=== PATIENT | male | born 1965 | race Caucasian/White ===

== ENCOUNTER 2019-10-23 15:19 | Emergency (ER) | payer SELFPAY ==
[2019-10-23] MEDS ORDERED: NORMAL SALINE 1000 ML 1,000 ML IV ONE (15:39)
[2019-10-23] MEDS ORDERED: ONDANSETRON HCL INJ/PF 4 MG/2 ML SDV IV ONE (15:39)
--- NOTE | 2019-10-23 15:41 | ER Document Report ---
ED Medical Screen (RME) - General Chief Complaint: Dizziness Stated Complaint: DIZZY,WEAK Time Seen by Provider: 10/23/19 15:35 Mode of Arrival: Ambulatory Information source: Patient Notes: 53-year-old male patient with history of diabetes, hypertension and hyperlipidemia presenting to the emergency department from the [facility] with request for medical clearance. Patient went there today, [place], [facility] states that his alcohol level was too high and that he was very shaky had an unsteady gait and reported that he had not been eating or drinking much in the last week. [facility] is holding a bed for him. Patient is alert, oriented, and answering all questions appropriately, he is tearful in triage. Denies any chest pain or shortness of breath. I have greeted and performed a rapid initial assessment of this patient. A comprehensive ED assessment and evaluation of the patient, analysis of test results and completion of the medical decision making process will be conducted by additional ED providers. I have specifically instructed the patient or family members with the patient to immediately return to any nursing staff should anything change in the patient's condition or with their chief complaint. - Related Data Allergies/Adverse Reactions: No Known Allergies Allergy (Verified 10/23/19 15:34) Physical Exam - Vital signs Vitals: Temp Pulse Resp BP Pulse Ox 98.2 F 105 H 16 165/94 H 100 10/23/19 15:31 10/23/19 15:31 10/23/19 15:31 10/23/19 15:31 10/23/19 15:31 Course - Vital Signs Vital signs: Temp Pulse Resp BP Pulse Ox 98.2 F 105 H 16 165/94 H 100 10/23/19 15:31 10/23/19 15:31 10/23/19 15:31 10/23/19 15:31 10/23/19 15:31
[2019-10-23 16:44] LABS: HEMATOCRIT 39.7 % (37.9-51.0); HEMOGLOBIN 13.9 g/dL (13.5-17.0); MEAN CORPUSCULAR HEMOGLOBIN 36.3 pg (27.0-33.4); MEAN CORPUSCULAR HGB CONC 35.1 g/dL (32.0-36.0); MEAN CORPUSCULAR VOLUME 103 fl (80-97); RED BLOOD COUNT 3.84 10^6/uL (4.35-5.55); RED CELL DISTRIBUTION WIDTH 15.6 % (11.5-14.0); WHITE BLOOD COUNT 3.2 10^3/uL (4.0-10.5)
[2019-10-23 16:45] LABS: PLATELET COUNT 72 10^3/uL (150-450)
[2019-10-23 16:55] LABS: ALBUMIN 4.3 g/dL (3.5-5.0); ALKALINE PHOSPHATASE 314 U/L (38-126); ANION GAP 19 (5-19); ASPARTATE AMINO TRANSFERASE 371 U/L (17-59); BILIRUBIN,DIRECT 0.8 mg/dL (0.0-0.4); BILIRUBIN,TOTAL 1.3 mg/dL (0.2-1.3); BLOOD UREA NITROGEN 8 mg/dL (7-20); CARBON DIOXIDE 24 mmol/L (22-30); CHLORIDE 89 mmol/L (98-107); GLUCOSE 102 mg/dL (75-110); POTASSIUM 4.5 mmol/L (3.6-5.0); TOTAL PROTEIN 7.3 g/dL (6.3-8.2)
[2019-10-23 17:06] LABS: ABSOLUTE MONOCYTES # (MANUAL) 0.1 10^3/uL (0.1-1.4); ANISOCYTOSIS 1+; BAND NEUTROPHILS % (MANUAL) 1 % (3-5); BASOPHILS % (MANUAL) 0 % (0-2); EOSINOPHILS % (MANUAL) 0 % (0-6); LYMPHOCYTES % (MANUAL) 31 % (13-45); MONOCYTES % (MANUAL) 3 % (3-13); SEGMENTED NEUTROPHILS % (MAN) 65 % (42-78); TOTAL CELLS COUNTED 100
[2019-10-23 17:07] LABS: PLATELET COMMENT DECREASED
[2019-10-23] MEDS ORDERED: ONDANSETRON HCL INJ/PF 4 MG/2 ML SDV ONE (17:54)
[2019-10-23] MEDS ORDERED: NORMAL SALINE 1000 ML 1,000 ML with POTASSIUM CHLORIDE 20 MEQ, MAGNESIUM SULFATE 8 MEQ,... IV SCH ×10 (18:00→22:00)
[2019-10-23 19:53] LABS: APPEARANCE,URINE CLEAR; BILIRUBIN,URINE NEGATIVE (NEGATIVE); COLOR,URINE YELLOW; GLUCOSE, URINE 50 mg/dL (NEGATIVE); KETONES,URINE 20 mg/dL (NEGATIVE); LEUKOCYTE ESTERASE,URINE NEGATIVE (NEGATIVE); NITRITE,URINE NEGATIVE (NEGATIVE); PROTEIN,URINE 100 mg/dL (NEGATIVE); UROBILINOGEN,URINE NEGATIVE mg/dL (<2.0)
--- NOTE | 2019-10-23 20:13 | ER Document Report ---
ED Substance Abuse / Acc. OD - General Chief Complaint: ETOH Abuse Stated Complaint: DIZZY,WEAK Time Seen by Provider: 10/23/19 15:35 Mode of Arrival: Ambulatory Information source: Patient Notes: Patient reports that he is an alcoholic for the last 10 years. States though he has been drinking more in the last 5years and states he drinks 12 pack a day at night. 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 Patient had presented himself to a mental health facility and because of his acute alcohol intoxication he was sent to the emergency room for further evaluation to gain medical clearance before entering a mental health rehab program. Any chest pain seizure activity nausea vomiting diarrhea. Patient does have a history of diabetes insulin- dependent. So hypertension. TRAVEL OUTSIDE OF THE [place] IN LAST 30 DAYS: No - HPI Patient complains to provider of: Alcohol abuse Onset: Other - Patient drink alcohol this morning Onset/Duration: Gradual Quality of pain: Other - Denies any pain Severity: Mild Pain Level: 0 Situational problems related to: Lost job, Other - Lost job in August Overdose of: Other - Patient states he only drank 1 beer this morning. However he reports he drinks a 12 pack last night. Patient reports he commonly drinks a 12 pack of beer every night. Associated Symptoms: None Recently seen / treated by doctor: No - Related Data Allergies/Adverse Reactions: No Known Allergies Allergy (Verified 10/23/19 15:34) Home Medications: DM. HTN. 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 Lives with: Alone Family History: Reviewed & Not Pertinent Patient has suicidal ideation: No Patient has homicidal ideation: No - Past Medical History Cardiac Medical History: Reports: Hx Hypertension Pulmonary Medical History: Reports: None EENT Medical History: Reports: None Neurological Medical History: Reports: Hx Cerebrovascular Accident Endocrine Medical History: Reports: Hx Diabetes Mellitus Type 2 Malignancy Medical History: Reports None GI Medical History: Reports: None Musculoskeletal Medical History: Reports Hx Arthritis Skin Medical History: Reports None Review of Systems - Review of Systems Constitutional: No symptoms reported EENT: No symptoms reported Cardiovascular: No symptoms reported Respiratory: No symptoms reported Gastrointestinal: No symptoms reported Genitourinary: No symptoms reported Male Genitourinary: No symptoms reported Musculoskeletal: No symptoms reported Skin: No symptoms reported Hematologic/Lymphatic: No symptoms reported Neurological/Psychological: No symptoms reported Physical Exam - Vital signs Vitals: Temp Pulse Resp BP Pulse Ox 98.2 F 105 H 16 165/94 H 100 10/23/19 15:31 10/23/19 15:31 10/23/19 15:31 10/23/19 15:31 10/23/19 15:31 Interpretation: Normal - General General appearance: Appears well, Alert - HEENT Head: Normocephalic, Atraumatic Eyes: Normal Pupils: PERRL - Respiratory Respiratory status: No respiratory distress Chest status: Nontender Breath sounds: Normal Chest palpation: Normal - Cardiovascular Rhythm: Regular, Tachycardia Heart sounds: Normal auscultation Murmur: No - Abdominal Inspection: Normal Distension: No distension Bowel sounds: Normal Tenderness: Nontender Organomegaly: No organomegaly, Hepatomegaly - Back Back: Normal, Nontender - Extremities General upper extremity: Normal inspection, Nontender, Normal color, Normal ROM, Normal temperature General lower extremity: Normal inspection, Nontender, Normal color, Normal ROM, Normal temperature, Normal weight bearing. No: Zeb's sign - Neurological Neuro grossly intact: Yes Cognition: Normal Orientation: AAOx4 Loren Coma Scale Eye Opening: Spontaneous Loren Coma Scale Verbal: Oriented [place] Coma Scale Motor: Obeys Commands [place] Coma Scale Total: 15 Speech: Normal Motor strength normal: LUE, RUE, LLE, RLE Sensory: Normal - Psychological Associated symptoms: Normal affect, Normal mood - Skin Skin Temperature: Warm Skin Moisture: Dry Skin Color: Normal Course - Re-evaluation Re-evalutation: 10/24/19 03:50 Patient is resting comfortably not showing any signs of delirium tremens at this time. Patient does have been ordered to receive lorazepam every 6 hours as needed agitation. Patient is medically cleared. A repeat urinalysis has been ordered as I believe the urinalysis report of blood may be related to the fact that the dipstick was had concentrated urine. 10/24/19 07:12 Repeat urinalysis on patient shows that there is microscopic hematuria still present. No evidence for infection no white cells present. 10/24/19 07:13 Patient has eaten 2 meals well here since overnight without any nausea vomiting. Patient no longer has a tremor and is resting comfortably in the room. Patient is medically cleared to be treated in the inpatient detox center. - Vital Signs Vital signs: Temp Pulse Resp BP Pulse Ox 98.7 F 92 20 147/87 H 97 10/24/19 05:30 10/24/19 05:30 10/24/19 05:30 10/24/19 05:30 10/24/19 05:30 - Laboratory Result Diagrams: 10/23/19 16:16 10/23/19 16:16 Laboratory results interpreted by me: 10/23/19 10/23/19 10/23/19 16:16 16:16 16:16 WBC 3.2 L RBC 3.84 L MCV 103 H MCH 36.3 H RDW 15.6 H Plt Count 72 L Band Neutrophils % 1 L Sodium 131.5 L Chloride 89 L Direct Bilirubin 0.8 H AST 371 H Alkaline Phosphatase 314 H Urine Protein Urine Glucose (UA) Urine Ketones Urine Blood Acetaminophen < 10 L 10/23/19 10/24/19 19:28 06:17 WBC RBC MCV MCH RDW Plt Count Band Neutrophils % Sodium Chloride Direct Bilirubin AST Alkaline Phosphatase Urine Protein 100 H Urine Glucose (UA) 50 H >=500 H Urine Ketones 20 H 20 H Urine Blood MODERATE H MODERATE H Acetaminophen Discharge - Discharge Clinical Impression: Alcohol abuse, Hematuria, microscopic Acute alcohol intoxication Qualifiers: Complication of substance-induced condition: uncomplicated Qualified Code(s): F10.920 - Alcohol use, unspecified with intoxication, uncomplicated Diabetes mellitus Qualifiers: Diabetes mellitus type: type 2 Diabetes mellitus skilled nursing insulin use: with termite inspector use Diabetes mellitus complication status: without complication Robert lified Code(s): E11.9 - Type 2 diabetes mellitus without complications; Z79.4 - rodent exterminator (current) use of insulin Condition: Stable Disposition: REHAB FACILITY Additional Instructions: WithHematuria Hematuria, or blood in your urine, can be caused by minor medical problems, such as a bladder infection, or by more serious medical conditions, such as kidney stones or even tumors of the bladder or kidney. If the cause of the hematuria is known (such as a bladder infection) and can be treated, it may not need further evaluation. If the cause is not known, it will usually require further evaluation by a specialist, such as a urologist. In particular, unexplained hematuria in the older patient must be evaluated to rule out a serious condition, such as a bladder or kidney tumor. If the hematuria worsens or you are passing clots and then are unable to urinate, you should be re-evaluated. A catheter may need to be placed in the bladder to permit passage of urine. If you develop high fever, severe pain, or other new or worsening symptoms, return to the Emergency Department for re-ashley luation. Patient has asymptomatic microscopic hematuria. And patient is advised to follow-up with his primary care physician as well as urology.
[2019-10-23] MEDS ORDERED: THIAMINE HCL 100 MG in NORMAL SALINE 50 ML IV ONE (21:12)
[2019-10-23] MEDS ORDERED: RINGERS SOLUTION,LACTATED 1,000 ML IV ONE (21:13)
[2019-10-23] MEDS ORDERED: THIAMINE HCL 100 MG, FOLIC ACID 1 MG in NORMAL SALINE 250 ML IV ONE (21:14)
--- NOTE | 2019-10-23 21:26 | EKG REPORT ---
SEVERITY:- ABNORMAL ECG - SINUS RHYTHM NONSPECIFIC T ABNORMALITIES, LATERAL LEADS BORDERLINE ST ELEVATION, ANTERIOR LEADS : Confirmed by: Keiry Braun MD 23-Oct-2019 21:25:39
[2019-10-23] MEDS ORDERED: LORAZEPAM 1 MG TABLET PO ONE (22:25)
[2019-10-23 22:54] LABS: ALCOHOL 235 mg/dL (NONE DETECTED)
[2019-10-23 22:55] LABS: ACETAMINOPHEN < 10 ug/mL (10-30)
--- NOTE | 2019-10-23 23:03 | RADIOLOGY REPORT (SQ) ---
EXAM DESCRIPTION: XR CHEST 1 VIEW COMPLETED DATE/TME: 10/23/2019 22:21 CLINICAL HISTORY: 53 years, Male, hypertension COMPARISON: None. NUMBER OF VIEWS: Single TECHNIQUE: LIMITATIONS: None. FINDINGS: Cardiomediastinal silhouette is normal. Lungs are clear. No acute bony injury is seen IMPRESSION: No evidence of active intrathoracic disease copyright 2011 [employer]- All Rights Reserved
[2019-10-23 23:17] LABS: URINE AMPHETAMINES SCREEN NEGATIVE; URINE BARBITURATES SCREEN NEGATIVE; URINE BENZODIAZEPINES SCREEN NEGATIVE; URINE COCAINE SCREEN NEGATIVE; URINE MARIJUANA (THC) SCREEN NEGATIVE; URINE METHADONE SCREEN NEGATIVE; URINE PHENCYCLIDINE SCREEN NEGATIVE
[2019-10-24] MEDS ORDERED: LORAZEPAM 1 MG TABLET PO PRN (03:46)
[2019-10-24] MEDS ORDERED: RINGERS SOLUTION,LACTATED 1,000 ML IV ONE (04:00)
[2019-10-24 06:30] LABS: APPEARANCE,URINE CLEAR; BILIRUBIN,URINE NEGATIVE (NEGATIVE); COLOR,URINE YELLOW; GLUCOSE, URINE >=500 mg/dL (NEGATIVE); KETONES,URINE 20 mg/dL (NEGATIVE); LEUKOCYTE ESTERASE,URINE NEGATIVE (NEGATIVE); NITRITE,URINE NEGATIVE (NEGATIVE); PROTEIN,URINE NEGATIVE (NEGATIVE); URINE SPECIFIC GRAVITY 1.003; UROBILINOGEN,URINE NEGATIVE mg/dL (<2.0)
[2019-10-24 08:15] VITALS: BP 152/87
== END 2019-10-24 08:15 ==
LOC: ER 15:19
DX: F10.120 Alcohol abuse with intoxication, uncomplicated (principal); R00.0 Tachycardia, unspecified; R31.29 Other microscopic hematuria; I10 Essential (primary) hypertension; E11.9 Type 2 diabetes mellitus without complications; Z79.4 Long term (current) use of insulin; Z79.899 Other long term (current) drug therapy; Z56.0 Unemployment, unspecified
CPT/HCPCS: 93005; 99284; 96361; 96375; 96365; 96366; 36415; 80307 ×3; 83735; 85025; 80053; 81001; 84484; 71045; 93010; J3475; J3480; J3411; J2405; J7030; J7120; J3490